=== PATIENT | female | born 1975 | race Caucasian/White ===

== ENCOUNTER 2017-08-24 16:57 | Emergency (ER) | payer BC, OTHER ==
[2017-08-24 17:03] VITALS: TEMP 97.9; BMI 58.6
--- NOTE | 2017-08-24 17:06 | PDOC ---
Rapid Medical Evaluation Time Seen by Provider: 08/24/17 17:01 Medical Evaluation: Allergies Allergy/AdvReac Type Severity Reaction Status Date / Time No Known Allergies Allergy Verified 08/24/17 17:00 08/24/17 17:01 The patient presents with a chief complaint of: shortness of breath, nausea, vomiting, ?anxiety, LMP 6 weeks I have performed a brief in-person evaluation of this patient; Pertinent physical exam findings: ambulatory, in no respiratory distress I have ordered the following: EKG, urine , cbc, cmp, ua, The patient will proceed to the ED for further evaluation.
[2017-08-24 17:24] LABS: BASO % 0.3 % (0-2.0); EOS % 1.2 % (0-4.5); HEMATOCRIT 40.7 % (32.4-45.2); HEMOGLOBIN 13.9 GM/dL (10.7-15.3); LYMPH % 24.6 % (8-40); MCHC 34.1 g/dl (32.0-36.0); MEAN CELL VOLUME 93.8 fl (80-96); MEAN PLT VOLUME 9.4 fl (7.5-11.1); MONO % 10.3 % (3.8-10.2); NEUT % 63.6 % (42.8-82.8); PLATELET COUNT 267 K/MM3 (134-434); RBC 4.34 M/mm3 (3.60-5.2); RDW 12.9 % (11.6-15.6); WHITE BLOOD COUNT 11.6 K/mm3 (4.0-10.0)
[2017-08-24 17:53] LABS: URINE APPEARANCE CLEAR; URINE BILIRUBIN NEGATIVE (NEGATIVE); URINE BLOOD NEGATIVE (NEGATIVE); URINE COLOR COLORLESS; URINE GLUCOSE (UA) NEGATIVE (NEGATIVE); URINE KETONE TRACE (NEGATIVE); URINE LEUK ESTERASE NEGATIVE (NEGATIVE); URINE NITRITE NEGATIVE (NEGATIVE); URINE PROTEIN NEGATIVE (NEGATIVE); URINE UROBILINOGEN NEGATIVE mg/dL (0.2-1.0)
[2017-08-24 17:54] LABS: ALBUMIN 4.6 g/dl (3.4-5.0); ALK PHOS 70 U/L (45-117); ANION GAP 12 (8-16); BILIRUBIN,TOTAL 0.5 mg/dL (0.2-1.0); BLOOD UREA NITROGEN 15 mg/dL (7-18); CALCIUM 9.1 mg/dL (8.5-10.1); CHLORIDE 106 mmol/L (98-107); CO2 20 mmol/L (21-32); CREATININE 0.8 mg/dL (0.55-1.02); GLUCOSE,RANDOM 103 mg/dL (74-106); POTASSIUM 3.7 mmol/L (3.5-5.1); SGOT/AST 18 U/L (15-37); SGPT/ALT 28 U/L (12-78); SODIUM 138 mmol/L (136-145); TOT PROT 7.9 g/dl (6.4-8.2)
[2017-08-24 18:15] LABS: HCG,QUALITATIVE URINE NEGATIVE
[2017-08-24] MEDS ORDERED: MECLIZINE HCL 25 MG TABLET (FP) PO STA (20:07)
--- NOTE | 2017-08-24 20:07 | PDOC ---
History of Present Illness - General History Source: Patient <Jose Gudino - Last Filed: 08/24/17 20:10> - General Exam Limitations: No Limitations - History of Present Illness Initial Comments: 08/24/17 20:15 The patient is a 42 year old female, with no significant past medical history, who presents to the emergency department complaining of palpitations beginning approx. four hours ago and one episode of nausea with vomiting (non bloody, non bilious). The patient states that around 4pm today she was walking 3 blocks to picking tech her daughter from school when she began to experience a sudden onset of palpitations and nausea. The patient states she was able to picking tech her daughter from school and walk home. However, upon returning home she vomited 1x (non bloody, non bilious) and her drove her to the ED for evaluation. The patient reports that two weeks ago she experienced similar symptoms while on vacation in [place]. The patient states she was at a [employer] show sitting down at rest when she began to have palpitations with nausea and was flown via helicopter to the closest hospital which was an hour and a half away. She reports that while in the hospital she had blood work and EKG performed which were negative and was discharged from the hospital being advised she may have had a severe panic attack. The patient also reports a frontal headache occurring during both episodes of palpitations. She denies recent fevers, chills, or dizziness. She denies recent, diarrhea or constipation. She denies recent dysuria, frequency, urgency or hematuria. She denies recent chest pain or shortness of breath. She denies recent swelling or calf tenderness. Allergies: NKA <Brijesh Dugan - Last Filed: 08/24/17 20:17> - General Chief Complaint: Nausea/Vomiting Stated Complaint: SOB Time Seen by Provider: 08/24/17 17:01 Past History - Past Medical History COPD: No Other medical history: ANXIETY - Immunization History Immunization Up to Date: Yes - Suicide/Smoking/Psychosocial Hx Smoking History: Never smoked Hx Alcohol Use: No Drug/Substance Use Hx: No <ShahabJose - Last Filed: 08/24/17 20:10> <Brijesh Dugan - Last Filed: 08/24/17 20:17> - Past Medical History Allergies/Adverse Reactions: Allergies Allergy/AdvReac Type Severity Reaction Status Date / Time No Known Allergies Allergy Verified 08/24/17 17:00 Home Medications: Ambulatory Orders Hydroxyzine HCl 25 mg PO QID 08/24/17 Meclizine HCl 25 mg PO TID #30 tablet 08/24/17 Review of Systems - Review of Systems Comments:: 08/24/17 20:15 CONSTITUTIONAL: Absent: fever, no chills, no fatigue EYES: Absent: visual changes ENT: Absent: ear pain, no sore throat CARDIOVASCULAR: Present: (+) Palpitations Absent: chest pain RESPIRATORY: Absent: cough, no SOB GI: Present: (+) Nausea. (+) Vomiting. Absent: abdominal pain, no constipation, no diarrhea GENITOURINARY: Absent: dysuria, no frequency, no hematuria MUSKULOSKELETAL: Absent: back pain, no arthralgia, no myalgia SKIN: Absent: rash NEURO: Present: (+) Frontal headache <Brijesh Dugan - Last Filed: 08/24/17 20:17> *Physical Exam - Vital Signs Last Vital Signs Temp Pulse Resp BP Pulse Ox 97.9 F 101 H 20 139/77 100 08/24/17 17:00 08/24/17 17:00 08/24/17 17:00 08/24/17 17:00 08/24/17 17:00 <Jose Gudino - Last Filed: 08/24/17 20:10> - Vital Signs Last Vital Signs Temp Pulse Resp BP Pulse Ox 97.9 F 101 H 20 139/77 100 08/24/17 17:00 08/24/17 17:00 08/24/17 17:00 08/24/17 17:00 08/24/17 17:00 - Physical Exam Comments: 08/24/17 20:16 GENERAL: Well developed, well nourished. Awake and alert. No acute distress. HEENT: Normocephalic, atraumatic. PERRLA, EOMI. No conjunctival pallor. Sclera are non- icteric. Moist mucous membranes. Oropharynx is clear. NECK: Supple. Full ROM. No JVD. Carotid pulses 2+ and symmetric, without bruits. No thyromegaly. No lymphadenopathy. CARDIOVASCULAR: Regular rate and rhythm. No murmurs, rubs, or gallops. Distal pulses are 2+ and symmetric. PULMONARY: No evidence of respiratory distress. Lungs clear to auscultation bilaterally. No wheezing, rales or rhonchi. ABDOMINAL: Soft. Non-tender. Non-distended. No rebound or guarding. No organomegaly. Normoactive bowel sounds. MUSCULOSKELETAL Normal range of motion at all joints. No bony deformities or tenderness. No CVA tenderness. EXTREMITIES: No cyanosis. No clubbing. No edema. No calf tenderness. SKIN: Warm and dry. Normal capillary refill. No rashes. No jaundice. NEUROLOGICAL: Alert, awake, appropriate. Cranial nerves 2-12 intact. No deficits to light touch and temperature in face, upper extremities and lower extremities. No motor deficits in the in face, upper extremities and lower extremities. Normoreflexic in the upper and lower extremities. Normal speech. Toes are down- going bilaterally. Gait is normal without ataxia. PSYCHIATRIC: Cooperative. Good eye contact. Appropriate mood and affect. <Brijesh Dugan - Last Filed: 08/24/17 20:17> Heart Score/ECG Review #1 08/24/17 20:16 Normal sinus rhythm at 71 bpm QT/QTc 392/425 ms EKG reviewed by Dr. Gudino <Brijesh Dugan - Last Filed: 08/24/17 20:17> ED Treatment Course - LABORATORY CBC & Chemistry Diagram: 08/24/17 17:13 08/24/17 17:13 - ADDITIONAL ORDERS Additional order review: Laboratory Results 08/24/17 08/24/17 17:24 17:13 Sodium 138 Potassium 3.7 Chloride 106 Carbon Dioxide 20 L Anion Gap 12 BUN 15 Creatinine 0.8 Creat Clearance w eGFR > 60 Random Glucose 103 Calcium 9.1 Total Bilirubin 0.5 AST 18 ALT 28 Alkaline Phosphatase 70 Total Protein 7.9 Albumin 4.6 Urine Color Colorless Urine Appearance Clear Urine pH 6.0 Ur Specific [place] 1.002 Urine Protein Negative Urine Glucose (UA) Negative Urine Ketones Trace H Urine Blood Negative Urine Nitrite Negative Urine Bilirubin Negative Urine Urobilinogen Negative Ur Leukocyte Esterase Negative Urine HCG, Qual Negative 08/24/17 17:13 RBC 4.34 MCV 93.8 MCHC 34.1 RDW 12.9 MPV 9.4 Neutrophils % 63.6 Lymphocytes % 24.6 Monocytes % 10.3 H Eosinophils % 1.2 Basophils % 0.3 <Jose Gudino Filed: 08/24/17 20:10> - LABORATORY CBC & Chemistry Diagram: 08/24/17 17:13 08/24/17 17:13 - ADDITIONAL ORDERS Additional order review: Laboratory Results 08/24/17 08/24/17 17:24 17:13 Sodium 138 Potassium 3.7 Chloride 106 Carbon Dioxide 20 L Anion Gap 12 BUN 15 Creatinine 0.8 Creat Clearance w eGFR > 60 Random Glucose 103 Calcium 9.1 Total Bilirubin 0.5 AST 18 ALT 28 Alkaline Phosphatase 70 Total Protein 7.9 Albumin 4.6 Urine Color Colorless Urine Appearance Clear Urine pH 6.0 Ur Specific [place] 1.002 Urine Protein Negative Urine Glucose (UA) Negative Urine Ketones Trace H Urine Blood Negative Urine Nitrite Negative Urine Bilirubin Negative Urine Urobilinogen Negative Ur Leukocyte Esterase Negative Urine HCG, Qual Negative 08/24/17 17:13 RBC 4.34 MCV 93.8 MCHC 34.1 RDW 12.9 MPV 9.4 Neutrophils % 63.6 Lymphocytes % 24.6 Monocytes % 10.3 H Eosinophils % 1.2 Basophils % 0.3 <Brijesh Dugan - Last Filed: 08/24/17 20:17> Medical Decision Making - Medical Decision Making 08/24/17 20:11 Dr. Gudino: The scribe's documentation has been prepared under my direction and personally reviewed by me in its entirery. I confirm that the note above accurately reflects all work, treatment, procedures, and medical decision making performed by me. <Jose Gudino - Last Filed: 08/24/17 20:10> *DC/Admit/Observation/Transfer - Discharge Dispostion Admit: No <Jose Gudino - Last Filed: 08/24/17 20:10> - Attestations Scribe Attestion: 08/24/17 20:17 Documentation prepared by Brjiesh Dugan, acting as medical delivery technician for Jose Gudino MD. <Brijesh Dugan - Last Filed: 08/24/17 20:17> Diagnosis at time of Disposition: Dizziness - Discharge Dispostion Disposition: HOME Condition at time of disposition: Stable - Prescriptions Prescriptions: Meclizine HCl 25 mg PO TID #30 tablet - Referrals Referrals: Lisbet Hsieh MD [Staff Physician] - Talib Zhu MD [Staff Physician] - - Patient Instructions Printed Discharge Instructions: DI for Dizziness-Nonvertigo Additional Instructions: Please follow up with the doctors referred to you here in the ER. Called Dr. Zhu ( cardiology) for possible holter montoring and echocardiogram. Return if any problems.
[2017-08-24] MEDS ORDERED: MECLIZINE HCL 25 MG TABLET (FP) ONE (20:22)
[2017-08-24 20:42] VITALS: BP 130/79; PULSE 82
--- NOTE | 2017-08-25 14:04 | EKG ---
Test Reason : Blood Pressure : / mmHG Vent. Rate : 071 BPM Atrial Rate : 071 BPM P-R Int : 160 ms QRS Dur : 090 ms QT Int : 392 ms P-R-T Axes : 053 040 032 degrees QTc Int : 425 ms NORMAL SINUS RHYTHM WITH SINUS ARRHYTHMIA NORMAL ECG NO PREVIOUS ECGS AVAILABLE Confirmed by MAURA SHEFFIELD MD ([id number]) on 08/25/2017 2:04:01 PM Referred By: Confirmed By:MAURA SHEFFIELD MD
== END 2017-08-24 20:42 | disposition home or self-care (01) ==
LOC: JER 16:57
DX: R42 Dizziness and giddiness (principal); F41.9 Anxiety disorder, unspecified
CPT/HCPCS: 36415; 80053; 81003; 84703; 85025; 93005; 93010; 99284-25